=== PATIENT | female | born 1950 | race Caucasian/White ===

== ENCOUNTER 2023-02-07 13:47 | Inpatient (IN) | payer MEDICARE, OTHER ==
[~2023-02-07] VITALS: Ht 160 cm; Wt 64.4 kg
[2023-02-07] MEDS ORDERED: ESCI-9 PO (14:12)
[2023-02-07] MEDS ORDERED: ALPR0.25 PO (14:12)
[2023-02-07] MEDS ORDERED: LURA20TA PO (14:12)
[2023-02-07] MEDS ORDERED: MAG HYDROX/AL HYDROX/SIMETH 30 ML LIQUID UDC PO PRN (15:15)
[2023-02-07] MEDS ORDERED: BLOOD SUGAR DIAGNOSTIC 1 EACH STRIP VI ONE (15:15)
[2023-02-07] MEDS ORDERED: MAGNESIUM HYDROXIDE 30 ML LIQUID UDC PO PRN (15:15)
[2023-02-07] MEDS ORDERED: LORAZEPAM 0.5 MG TABLET PO PRN (15:15)
[2023-02-07 15:30] VITALS: BP 139/64; TEMP 97; O2SAT 100
[2023-02-07] MEDS ORDERED: LUMA42CA PO (15:37)
[2023-02-07] MEDS ORDERED: GABA300C PO (15:40)
[2023-02-07] MEDS ORDERED: ROSU10TA2 PO (15:40)
[2023-02-07 20:05] VITALS: BP 132/72; TEMP 98.2; O2SAT 100
[2023-02-08 07:44] VITALS: BP 131/72; TEMP 98.5; O2SAT 100
[2023-02-08 07:55] LABS: BASOPHILS # (AUTO) 0.1 K/UL (0.0-0.2); BASOPHILS % (AUTO) 0.8 % (0.0-2.0); EOSINOPHILS # (AUTO) 0.1 K/uL (0.0-0.7); HEMATOCRIT 41.6 % (31.2-41.9); HEMOGLOBIN 13.8 g/dL (10.9-14.3); LYMPHOCYTES # (AUTO) 0.8 K/uL (0.8-4.8); LYMPHOCYTES % (AUTO) 12.3 % (20.5-51.5); MEAN CORPUSCULAR HEMOGLOBIN 30.9 uug (24.7-32.8); MEAN CORPUSCULAR HGB CONC 33 g/dL (32.3-35.6); MEAN CORPUSCULAR VOLUME 93.5 fL (75.5-95.3); MONOCYTES # (AUTO) 0.5 K/uL (0.1-1.30); MONOCYTES % (AUTO) 7.2 % (0.0-11.0); NEUTROPHILS # (AUTO) 5.2 K/uL (1.8-8.9); NEUTROPHILS % (AUTO) 78.7 % (38.5-71.5); PLATELET COUNT (AUTO) 344 K/uL (179-408); RED BLOOD CELL COUNT(AUTO) 4.45 MIL/uL (3.63-4.92); RED CELL DISTRIBUTION WIDTH 14.7 % (12.3-17.7); WHITE BLOOD COUNT (AUTO) 6.7 K/uL (3.8-11.8)
[2023-02-08 07:58] LABS: DIFFERENTIAL COMMENT 1
[2023-02-08 08:10] LABS: CALCIUM 9.4 mg/dL (8.5-10.1); CREATININE 0.9 mg/dL (0.6-1.3); POTASSIUM 3.4 mmol/L (3.5-5.1)
[2023-02-08] MEDS ORDERED: POTASSIUM CHLORIDE 20 MEQ TAB.PRT.SR PO ONE (10:00)
[2023-02-08] MEDS: GABAPENTIN 300 MG CAPSULE PO SCH ×2 (11:47→18:00)
[2023-02-08] MEDS: ALPRAZOLAM 0.25 MG TABLET PO PRN ×2 (14:05→21:33)
[2023-02-08 15:39] VITALS: BP 110/54; TEMP 98.2; O2SAT 100
[2023-02-08] MEDS ORDERED: GABAPENTIN 300 MG CAPSULE PO SCH (17:00)
[2023-02-08 20:34] VITALS: BP 135/65; TEMP 98; O2SAT 100
[2023-02-08] MEDS: ATORVASTATIN 20 MG TABLET PO SCH (21:33)
[2023-02-09] MEDS: TEMAZEPAM 7.5 MG CAPSULE PO PRN (03:17)
[2023-02-09] MEDS: GABAPENTIN 300 MG CAPSULE PO SCH ×2 (08:30→17:04)
[2023-02-09] MEDS: ALPRAZOLAM 0.25 MG TABLET PO PRN (10:36)
[2023-02-09 10:59] VITALS: BP 116/65; TEMP 98.2; O2SAT 99
[2023-02-09] MEDS: LITHIUM CARBONATE 150 MG CAPSULE PO SCH ×2 (14:18→20:58)
[2023-02-09 17:33] VITALS: BP 120/52; TEMP 98.2; O2SAT 99
[2023-02-09] MEDS: ATORVASTATIN 20 MG TABLET PO SCH (20:58)
[2023-02-09 21:23] VITALS: BP 133/67; TEMP 98.2; O2SAT 98
[2023-02-10] MEDS: ALPRAZOLAM 0.25 MG TABLET PO PRN ×3 (03:11→21:21)
[2023-02-10 09:00] VITALS: BP 134/91; TEMP 98.3; O2SAT 100
[2023-02-10] MEDS: LITHIUM CARBONATE 150 MG CAPSULE PO SCH ×2 (09:13→20:51)
[2023-02-10] MEDS: GABAPENTIN 300 MG CAPSULE PO SCH ×2 (09:14→16:46)
[2023-02-10 15:56] VITALS: BP 133/59; TEMP 97.9; O2SAT 100
[2023-02-10] MEDS: ATORVASTATIN 20 MG TABLET PO SCH (20:51)
[2023-02-10 21:22] VITALS: BP 135/63; TEMP 98; O2SAT 98
[2023-02-11] MEDS: ALPRAZOLAM 0.25 MG TABLET PO PRN ×2 (04:29→14:41)
[2023-02-11 07:56] VITALS: BP 129/66; TEMP 98.2; O2SAT 100
[2023-02-11] MEDS: LITHIUM CARBONATE 150 MG CAPSULE PO SCH ×2 (08:32→20:50)
[2023-02-11] MEDS: GABAPENTIN 300 MG CAPSULE PO SCH ×2 (08:33→16:58)
[2023-02-11 16:33] VITALS: BP 122/55; TEMP 98.1; O2SAT 99
[2023-02-11 20:00] VITALS: BP 130/74; TEMP 97.2; O2SAT 96
[2023-02-11] MEDS: ATORVASTATIN 20 MG TABLET PO SCH (20:50)
[2023-02-12] MEDS: TEMAZEPAM 7.5 MG CAPSULE PO PRN (01:46)
[2023-02-12 08:07] VITALS: BP 125/107; TEMP 98.3; O2SAT 100
[2023-02-12] MEDS: LITHIUM CARBONATE 150 MG CAPSULE PO SCH ×2 (08:37→21:04)
[2023-02-12] MEDS: GABAPENTIN 300 MG CAPSULE PO SCH ×2 (08:37→16:38)
[2023-02-12 16:17] VITALS: BP 145/65; TEMP 98; O2SAT 100
[2023-02-12] MEDS: ALPRAZOLAM 0.25 MG TABLET PO PRN ×2 (16:38→21:10)
[2023-02-12 19:53] VITALS: BP 129/50; TEMP 98.2; O2SAT 100
[2023-02-12] MEDS: ATORVASTATIN 20 MG TABLET PO SCH (21:04)
[2023-02-13] MEDS: TEMAZEPAM 7.5 MG CAPSULE PO PRN (01:55)
[2023-02-13] MEDS: ALPRAZOLAM 0.25 MG TABLET PO PRN ×2 (06:52→22:55)
[2023-02-13 07:50] VITALS: BP 123/84; TEMP 98.4; O2SAT 100
[2023-02-13] MEDS: LITHIUM CARBONATE 150 MG CAPSULE PO SCH (08:26)
[2023-02-13] MEDS: GABAPENTIN 300 MG CAPSULE PO SCH ×2 (08:27→16:32)
[2023-02-13 15:09] VITALS: BP 105/53; TEMP 98.2; O2SAT 96
[2023-02-13] MEDS: ACETAMINOPHEN 325 MG TABLET PO PRN ×2 (16:31→22:55)
[2023-02-13 20:25] VITALS: BP 115/56; TEMP 97.9; O2SAT 98
[2023-02-13] MEDS: ATORVASTATIN 20 MG TABLET PO SCH (20:30)
[2023-02-13] MEDS: CAPLYTA 42 MG PO SCH (20:30)
[2023-02-13] MEDS: LITHIUM CARBONATE 300 MG CAPSULE PO SCH (20:33)
[2023-02-13] MEDS ORDERED: CAPLYTA PO SCH (21:00)
[2023-02-14] MEDS: TEMAZEPAM 7.5 MG CAPSULE PO PRN (02:03)
[2023-02-14 07:30] VITALS: BP 106/60; TEMP 98; O2SAT 98
[2023-02-14] MEDS: GABAPENTIN 300 MG CAPSULE PO SCH ×2 (08:02→16:12)
[2023-02-14] MEDS: ALPRAZOLAM 0.25 MG TABLET PO PRN (08:02)
[2023-02-14] MEDS: LITHIUM CARBONATE 300 MG CAPSULE PO SCH ×2 (08:02→20:28)
[2023-02-14] MEDS: ACETAMINOPHEN 325 MG TABLET PO PRN (12:55)
[2023-02-14 15:34] VITALS: BP 110/53; TEMP 98.2; O2SAT 100
[2023-02-14 20:12] VITALS: BP 102/56; TEMP 98; O2SAT 100
[2023-02-14] MEDS: ATORVASTATIN 20 MG TABLET PO SCH (20:28)
[2023-02-14] MEDS: CAPLYTA 42 MG PO SCH (20:29)
[2023-02-15] MEDS: TEMAZEPAM 7.5 MG CAPSULE PO PRN (02:48)
[2023-02-15 07:30] VITALS: BP 116/44; TEMP 97.5; O2SAT 100
[2023-02-15 08:16] LABS: BASOPHILS # (AUTO) 0.1 K/UL (0.0-0.2); BASOPHILS % (AUTO) 1.3 % (0.0-2.0); EOSINOPHILS # (AUTO) 0.1 K/uL (0.0-0.7); EOSINOPHILS % (AUTO) 1.9 % (0.0-7.0); HEMOGLOBIN 13.2 g/dL (10.9-14.3); LYMPHOCYTES # (AUTO) 1.1 K/uL (0.8-4.8); LYMPHOCYTES % (AUTO) 18.8 % (20.5-51.5); MEAN CORPUSCULAR HEMOGLOBIN 31.3 uug (24.7-32.8); MEAN CORPUSCULAR HGB CONC 34 g/dL (32.3-35.6); MEAN CORPUSCULAR VOLUME 92.9 fL (75.5-95.3); MONOCYTES # (AUTO) 0.4 K/uL (0.1-1.30); MONOCYTES % (AUTO) 7.2 % (0.0-11.0); NEUTROPHILS # (AUTO) 4.1 K/uL (1.8-8.9); NEUTROPHILS % (AUTO) 70.8 % (38.5-71.5); PLATELET COUNT (AUTO) 277 K/uL (179-408); RED CELL DISTRIBUTION WIDTH 14.3 % (12.3-17.7); WHITE BLOOD COUNT (AUTO) 5.8 K/uL (3.8-11.8)
[2023-02-15 08:23] LABS: DIFFERENTIAL COMMENT 1
[2023-02-15] MEDS: LITHIUM CARBONATE 300 MG CAPSULE PO SCH (08:26)
[2023-02-15] MEDS: GABAPENTIN 300 MG CAPSULE PO SCH (08:26)
[2023-02-15] MEDS: ALPRAZOLAM 0.25 MG TABLET PO PRN (08:26)
[2023-02-15] MEDS: ACETAMINOPHEN 325 MG TABLET PO PRN (08:29)
[2023-02-15 08:31] LABS: ALBUMIN 3.5 g/dL (3.4-5.0); BILIRUBIN,TOTAL 0.4 mg/dL (0.2-1.0); CALCIUM 9.2 mg/dL (8.5-10.1); CREATININE 0.8 mg/dL (0.6-1.3); POTASSIUM 4.4 mmol/L (3.5-5.1); TOTAL PROTEIN, SERUM 6.8 g/dL (6.4-8.2)
== END 2023-02-15 11:30 | disposition home or self-care (01) | DRG 885 ==
LOC: ER 13:47 → GPS 14:27
PROVIDERS: ADMIT Psychiatry & Neurology Psychosomatic Medicine; ATTEND Nurse Practitioner Acute Care
DX: F31.9 Bipolar disorder, unspecified (principal); R45.851 Suicidal ideations; T40.2X2D Poisoning by other opioids, intentional self-harm, subsequent encounter; F43.10 Post-traumatic stress disorder, unspecified; E78.5 Hyperlipidemia, unspecified; F12.10 Cannabis abuse, uncomplicated; Z91.51 Personal history of suicidal behavior; F60.3 Borderline personality disorder; Z88.6 Allergy status to analgesic agent; G89.4 Chronic pain syndrome; Z62.810 Personal history of physical and sexual abuse in childhood
CPT/HCPCS: 36415; 70030-TC; 85025; 93005